=== PATIENT | male | born 1950 | race Caucasian/White ===

== ENCOUNTER 2017-06-22 10:29 | Emergency (ER) | payer MEDICARE, BC ==
[2017-06-22 10:53] LABS: #Eosinphils 0.1 thou/uL (0.0-0.7); #Lymphocytes 1.2 thou/uL (1.20-3.40); #Monocytes 0.4 thou/uL (0.11-0.59); #Neutrophils 2.6 thou/uL (1.40-6.50); %Basophils 0.6 % (0.0-1.0); %Eosinophils 3.4 % (0.0-10.0); %Lymphocytes 28.4 % (21.0-51.0); %Monocytes 8.8 % (0.0-10.0); Hematocrit 40.5 % (42.0-52.0); Mean Platelet Volume 8.1 fL (7.4-10.4); Red Blood Cell (RBC) Count 4.57 mill/uL (4.70-6.10); White Blood Cell (WBC) Count 4.3 thou/uL (4.8-10.8)
[2017-06-22 11:08] LABS: Troponin I Less than 0.010 ng/mL (< 0.028)
[2017-06-22 11:12] LABS: ALT (SGPT) 15 U/L (8-55); AST (SGOT) 13 U/L (5-34); Alkaline Phosphatase 72 U/L (40-150); Anion Gap 15 mmol/L (10-20); BUN (Urea Nitrogen) 17 mg/dL (8.4-25.7); Bilirubin, Total 0.4 mg/dL (0.2-1.2); CK (CPK) 102 U/L (30-200); Calc. Creatinine Clearance 0 mL/min (70-130); Calcium 9.2 mg/dL (7.8-10.44); Carbon Dioxide 26 mmol/L (23-31); Chloride 104 mmol/L (98-107); Estimated GFR-MDRD 88; Globulin 2.8 g/dL (2.4-3.5); Lipase 20 U/L (8-78)
--- NOTE | 2017-06-22 11:41 | RAD ---
RADIOGRAPH CHEST 1 VIEW: HISTORY: 66-year-old male with right-sided and mid sternal chest pain. FINDINGS: There are no air space densities, pulmonary edema, pneumothorax, or cardiomegaly. The lateral costo phrenic angles are sharp. IMPRESSION: No acute cardiopulmonary findings. [email or web address] [] POS: [facility]
== END 2017-06-22 11:22 | disposition home or self-care (01) ==
LOC: SCSER 10:29
DX: R07.9 Chest pain, unspecified (principal); I10 Essential (primary) hypertension
CPT/HCPCS: 71010; 80053; 82550; 82553; 83690; 84484; 85025; 93005; 94760

== ENCOUNTER 2018-02-21 20:30 | Outpatient (CLI) | payer MEDICARE, BC | END 2018-02-21 20:31 | disposition home or self-care (01) | LOC: SLEEPLAB 20:30 | PROVIDERS: ATTEND Otolaryngology | DX: G47.33 Obstructive sleep apnea (adult) (pediatric) (principal); R53.83 Other fatigue; R06.83 Snoring; I49.3 Ventricular premature depolarization | CPT/HCPCS: 95811 ==

== ENCOUNTER 2018-12-09 16:45 | Emergency (ER) | payer MEDICARE, BC ==
[2018-12-09] MEDS ORDERED: diphenhydrAMINE 25 MG CAP ONE (17:07)
[2018-12-09] MEDS ORDERED: predniSONE 20 MG TAB ONE (17:07)
[2018-12-09] MEDS ORDERED: Famotidine 20 MG TAB ONE (17:07)
== END 2018-12-09 18:40 | disposition home or self-care (01) ==
LOC: SCSER 16:45
DX: T65.91XA Toxic effect of unspecified substance, accidental (unintentional), initial encounter (principal); I10 Essential (primary) hypertension
CPT/HCPCS: 99282; Q0163

== ENCOUNTER 2019-11-03 09:47 | Outpatient (CLI) | payer MEDICARE, BC ==
--- NOTE | 2019-11-03 11:54 | MRI ---
MRI of thecervical spine: 11/03/2019 COMPARISON:None available HISTORY:Cervical spine radiculopathy, neck pain with left arm tingling TECHNIQUE: Multiplanar multisequence MR imaging of thecervical spine without contrast Findings:The sagittal STIR imaging demonstrates no focal area of osseous marrow edema. Motion artifact limits assessment of the sagittal and axial imaging. No anterolisthesis or retrolisthesis is noted within the cervical spine. There is moderate degenerati ve change at the atlantoaxial interspace. C2-3: Mild facet hypertrophy on the left. No significant central canal or neural foraminal stenosis. C3-4: There is disc space narrowing with disc desiccation and mild disc bulge partially effacing the ventral thecal sac and leading to a mild degree of central canal stenosis. Bilateral facet and uncovertebral osteophyte formation, left greater than right. Moderate left and mild right neural fora edilia stenosis. C4-5: Disc space narrowing and disc desiccation with mild disc bulge and small right paracentral disc protrusion. Mild central canal stenosis. Bilateral facet and uncovertebral osteophyte formation with mild/moderate bilateral neural foraminal stenosis, left greater than right. C5-6: There is disc space narrowing with disc desiccation and disc bulge partially effacing the ventr al thecal sac and causing mild central canal stenosis. Bilateral facet and uncovertebral osteophyte formation noted with moderate/severe bilateral neural foraminal stenosis, left greater than right. C6-7: There is disc space narrowing with disc desiccation and mild disc bulge. Possible superimposed central/left paracentral disc protrusion with a mild degree of central canal stenosis. Bilateral facet and uncovertebral osteophyte formation causes moderate bilateral neural foraminal stenosis. C7-T1: Bilateral facet hypertrophy with no significant central canal or neural foraminal stenosis. No focal area of abnormal signal intensity identified within the cervical cord IMPRESSION:Multilevel cervical spine degenerative change as detailed above. Please note that detailed assessment for central canal and/or neural foraminal stenosis is limited on the basis of motion artifact.
== END 2019-11-03 09:48 | disposition home or self-care (01) ==
LOC: BICMRI 09:47
PROVIDERS: ATTEND Specialist
DX: M47.22 Other spondylosis with radiculopathy, cervical region (principal)
CPT/HCPCS: 72141

== ENCOUNTER 2020-12-12 10:54 | Outpatient (CLI) | payer MEDICARE, BC | END 2020-12-12 10:55 | disposition home or self-care (01) | LOC: BICRAD 10:54 | PROVIDERS: ATTEND Internal Medicine Pulmonary Disease | DX: R06.00 Dyspnea, unspecified (principal); J98.4 Other disorders of lung; I70.0 Atherosclerosis of aorta; M47.814 Spondylosis without myelopathy or radiculopathy, thoracic region; R91.8 Other nonspecific abnormal finding of lung field | CPT/HCPCS: 71046 ==